=== PATIENT | male | born 1950 | race Caucasian/White ===

== ENCOUNTER 2018-05-12 22:39 | Emergency (ER) | payer MEDICARE, OTHER ==
[~2018-05-12] VITALS: Ht 182.9 cm; Wt 68.0 kg
[2018-05-12 22:43] VITALS: BP 132/82
--- NOTE | 2018-05-12 22:43 | NUR ---
PT TO ER BED 14. BIB EMS FROM [facility] FOR LOW BACK PAIN S/P FALL INTO WHEELCHAIR. -LOC/DENIES HEAD TRAUMA. PT PLACED IN GOWN ON STILL OPERATOR HELPER. PT VSS/NAD NOTED/RESP EVEN UNLABORED/SKIN WARM AND DRY/DENIES N-V-D/AFEBRILE/AOX4. AWAITING MD RAMÍREZ.
[2018-05-12] MEDS ORDERED: oxyCODONE/APAP (5/325 MG) 1 UDTAB TABLET PO ONE (23:30)
--- NOTE | 2018-05-12 23:30 | NUR ---
PT TO CT VIA STRETCHER. VSS.
[2018-05-12] MEDS ORDERED: oxyCODONE/APAP (5/325 MG) 1 UDTAB TABLET ONE (23:47)
--- NOTE | 2018-05-13 02:27 | NUR ---
REPORT GIVEN TO MAMIE BYRD FOR TRANSPORT.
--- NOTE | 2018-05-13 02:29 | NUR ---
Patient discharged to home in stable condition. Written and verbal after care instructions given. Patient verbalizes understanding of instruction.
[2018-05-27] MEDS ORDERED: DIVA-78 PO (18:22)
[2018-05-28] MEDS ORDERED: DIVA-78 PO (02:07)
== END 2018-05-13 02:43 | disposition home or self-care (01) ==
LOC: EDUNIT# 22:39 → ER 22:44
DX: S32.029A Unspecified fracture of second lumbar vertebra, initial encounter for closed fracture (principal); S22.069A Unspecified fracture of T7-T8 vertebra, initial encounter for closed fracture; W07.XXXA Fall from chair, initial encounter; Y93.89 Activity, other specified; Y92.89 Other specified places as the place of occurrence of the external cause; Y99.8 Other external cause status
CPT/HCPCS: 72128; 72131; 99284; A4606; Z7610

== ENCOUNTER 2018-05-27 15:26 | Inpatient (IN) | payer OTHER, MEDICARE ==
[~2018-05-27] VITALS: Ht 180.3 cm; Wt 74.8 kg
--- NOTE | 2018-05-27 15:30 | NUR ---
[facility] FOR LEFT HAND PAIN W/ SWELLING AND REDNESS WITH DRY WOUNDS. PATIENT IS A/OX 2, BREATHING EVEN AND UNLABORED. NO SOB, NAD, VITALS STABLE. SAFETY AND COMFORT MEAURES IN PLACE, AWAITING MD ORDERS.
[2018-05-27 15:57] LABS: BASOPHILS % (AUTO) 0.6 % (0.0-2.0); HEMATOCRIT 35 % (39-51); HEMOGLOBIN 11.7 g/dL (13.5-17.5); LYMPHOCYTES # (AUTO) 1.4 /CMM (0.8-4.8); LYMPHOCYTES % (AUTO) 17.6 % (20.0-44.0); MEAN CORPUSCULAR HEMOGLOBIN 30 PG (26.0-33.0); MEAN CORPUSCULAR HGB CONC 34 g/dl (31.0-36.0); MEAN CORPUSCULAR VOLUME 89 fL (80-96); MONOCYTES # (AUTO) 0.6 /CMM (0.1-1.30); MONOCYTES % (AUTO) 8.1 % (2.0-12.0); NEUTROPHILS # (AUTO) 5.6 /CMM (1.8-8.9); NEUTROPHILS % (AUTO) 71.7 % (43.0-81.0); PLATELET COUNT (AUTO) 184 /CMM (150-450); RDW COEFFICIENT OF VARIATION 14.9 (11.5-15.0); RED BLOOD CELL COUNT(AUTO) 3.92 MIL/uL (4.5-6.0); WHITE BLOOD COUNT (AUTO) 7.8 K/uL (4.3-11.0)
[2018-05-27 16:06] LABS: CALCIUM, SERUM 9.1 mg/dL (8.5-10.1); CREATININE 1.3 mg/dL (0.6-1.3)
[2018-05-27] MEDS ORDERED: CEFTRIAXONE 1GM BAG (ER ONLY) 50 ML IV ONE (16:43)
--- NOTE | 2018-05-27 16:55 | NUR ---
NEW IV STARTED ON RFA, 20G. MEDICATED PATIENT PER MD ORDERS
[2018-05-27] MEDS ORDERED: CEFTRIAXONE 1 G in IV D5W 50 ML IV ONE (17:00)
[2018-05-27] MEDS ORDERED: LEVE500T9 PO (18:22)
[2018-05-27] MEDS ORDERED: DOXA8TAB79 PO (18:22)
[2018-05-27] MEDS ORDERED: ASPI-1169 PO (18:22)
[2018-05-27] MEDS ORDERED: MONT10TA22 PO (18:22)
[2018-05-27] MEDS ORDERED: DIVA500T7 PO (18:22)
[2018-05-27] MEDS ORDERED: SENN-167 PO (18:22)
[2018-05-27] MEDS ORDERED: TAMS0.4C34 PO (18:22)
[2018-05-27] MEDS ORDERED: DOCU100C36 PO (18:22)
--- NOTE | 2018-05-27 18:39 | NUR ---
REPORT GIVEN TO RNMEAGAN. PATIENT TRANSPORTED TO [facility] VIA STRETCHER. MEAGAN TO PROVIDE CATRINA.
--- NOTE | 2018-05-27 19:05 | NUR ---
MS RN OPENING NOTE Patient was admitted to the unit just prior to shift change. Patient was seen in bed AAOx3, breathing on 2.5L O2 NC with no SOB and no signs of acute distress. SL IV is intact in the right forearm. Patient has multiple wounds and redness of his left arm/hand (admitted for cellulitis). Complete physical assessment and past medical history was obtained from the patient. Patient was oriented to the room and made comfortable. Bed is in the low/locked position, two side rails up, and call sanches within reach. All patient's needs have been met at this time. Will continue to monitor.
[2018-05-27 20:00] VITALS: BP 127/74
--- NOTE | 2018-05-27 21:45 | NUR ---
MS RN NOTE - call to Dr. Byers's Office Phone call was made to Dr. Byers's Office to obtain orders for new admission. Spoke with HARNESS INSTALLER Stephon Kat. Per Stephon Kat, continue all home medications, renew order for Rocephin that was given in ED, start on regular diet, order wound consult. Otherwise, wait for Dr. Byers to see patient tomorrow (05/28/18) morning.
[2018-05-27] MEDS ORDERED: ACETAMINOPHEN 325 MG TABLET PO PRN (22:00)
[2018-05-27] MEDS ORDERED: IPRATROPIUM/ALBUTEROL INHALER NEB PRN (22:00)
[2018-05-27] MEDS ORDERED: ACYCLOVIR 800 MG TABLET PO SCH (22:00)
[2018-05-27] MEDS: oxyCODONE/APAP (5/325 MG) 1 UDTAB TABLET PO PRN (22:18)
--- NOTE | 2018-05-27 22:18 | NUR ---
MS RN NOTE - Percocet Patient requested pain medication for 8/10 back pain (s/p fall and vertebral fracture 2-3 wks ago). PO Percocet 5/325mg was administered as ordered. Will continue to monitor.
[2018-05-28] MEDS ORDERED: DIVA500T7 PO (02:07)
[2018-05-28] MEDS ORDERED: TIOT18CA3 IH (02:50)
[2018-05-28] MEDS ORDERED: ALBU18HF2 INH (02:50)
[2018-05-28] MEDS ORDERED: FLUT1DIS3 INH (02:50)
[2018-05-28] MEDS ORDERED: THEO400T PO (02:50)
[2018-05-28] MEDS ORDERED: PRED5DRO16 RIGHTEYE (02:50)
[2018-05-28] MEDS: oxyCODONE/APAP (5/325 MG) 1 UDTAB TABLET PO PRN ×4 (05:58→23:59)
--- NOTE | 2018-05-28 05:58 | NUR ---
MS RN NOTE - Percocet Patient requested pain medication for back pain 07/05. PO Percocet 5/325mg administered as ordered. Will continue to monitor.
--- NOTE | 2018-05-28 06:00 | NUR ---
MS RN NOTE - O2 Patient asked if he could use an O2 mask instead of the nasal cannula. I educated him on the difference between the two, and also told him that a mask may not be necessary. The patient said that he tends to be a "mouth breather" and would feel more comfortable with a mask for now. Simple face mask was provided per patient request. O2 at 2 L.
--- NOTE | 2018-05-28 06:29 | NUR ---
MS RN NOTE - Call to assisted living facility Call was made to [facility] on behalf of patient. Patient stated that his [employer] (CM) Shayne Sam was scheduled to see him there today; this CM travels to see him, and the patient was concerned that he would miss the visit. Per city secretary at [facility], they will try to contact Shayne Sam and ask that he visit the patient at [facility].
--- NOTE | 2018-05-28 06:54 | NUR ---
MS RN NOTE - wound care I asked patient several times this shift if he was will to let me provide minor wound care (aka cleansing with normal saline, covering open wounds). Patient declined this shift.
--- NOTE | 2018-05-28 06:55 | NUR ---
MS RN CLOSING NOTE Patient was seen in bed AAOx3, breathing on 2.5L of O2 via simple mask with no SOB, and no signs of acute distress. Patient slept well overnight with no complaints or events. Patient remains in stable condition and has no immediate needs at this time. Bed is in the low/locked position, two side rails up, call sanches within reach. Patient care is endorsed to day shift RN.
[2018-05-28] MEDS ORDERED: ALBUTEROL FS 2.5 MG/0.5 ML VIAL.NEB NEB PRN ×2 (07:08)
--- NOTE | 2018-05-28 07:20 | NUR ---
RN OPENING NOTES RECEIVED PATIENT IN BED RESTING. A/OX4. NO ACUTE DISTRESS, NO SOB NOTED. IV SITE INTACT AND PATENT. KEPT PATIENT SAFE AND COMFORTABLE. BED IN LOW/LOCKED POSITION, SIDERAILS UPX2, CALL LIGHT IN REACH. WILL CONTINUE TO MONITOR ACCORDINGLY.
[2018-05-28] MEDS ORDERED: IPRATROPIUM NEB FS 0.5 MG/2.5 ML AMPUL.NEB NEB PRN (07:30)
[2018-05-28 08:00] VITALS: BP 118/74
--- NOTE | 2018-05-28 08:56 | NUR ---
WOUND CARE CONSULT: PT PRESENTS WITH MULTIPLE DRY SCABS AND DRY ABRASIONS PRESENT ON ADMISSION. DRY LESIONS TO UPPER BACK, SHOULDER AREA AND ABDOMEN NOTED, PRESENT ON ADMISSION. DEFER TO MD. PT INDEPENDENT WITH BED MOBILITY AND CONTINENT. WILL SEE PRN.
[2018-05-28 16:00] VITALS: BP 144/77
[2018-05-28] MEDS ORDERED: FLUTICASONE/SALMETEROL DISKUS IH SCH (17:00)
[2018-05-28] MEDS: LEVETIRACETAM (250 MG) 250 MG TABLET PO SCH (18:11)
--- NOTE | 2018-05-28 19:00 | NUR ---
FOLLOWED UP WITH PHARMACY REGARDING PREDISOLONE ACETATE EYEDROPS AND ANCEF ABX. PER BECKA, THEY WILL BRING IT UP. WILL ENDORSED MEDICATION ADMIN TO NIGHT RN.
--- NOTE | 2018-05-28 19:16 | NUR ---
RN CLOSING NOTES PATIENT IN STABLE CONDITION. ALL NEEDS ATTENDED AND PROVIDED. KEPT PATIENT SAFE AND COMFORTABLE. BED IN LOW/LOCKED POSITION, CALL LIGHT IN REACH. ENDORSED TO NIGHT RN FOR CATRINA.
--- NOTE | 2018-05-28 19:20 | NUR ---
MS RN OPENING NOTE Patient was seen lying in bed AAOx3, breathing on 2 L of O2 NC with no SOB, and no signs of acute distress. SL IV in right forearm remains intact. Urinal and bedside commode are within reach. Patient states that is having back pain and would like pain medication, otherwise, patient has no other concerns. Bed is in the low/locked position, two side rails up, and call sanches within reach. Will continue to monitor.
[2018-05-28] MEDS ORDERED: IPRATROPIUM NEB FS 0.5 MG/2.5 ML AMPUL.NEB NEB SCH (19:30)
--- NOTE | 2018-05-28 19:30 | NUR ---
MS RN NOTE - Pain Patient requested pain medication for 07/05 back pain s/p lumbar compression fracture. PO Percocet 5/325mg administered as ordered for pain relief. Will continue to monitor.
[2018-05-28] MEDS: prednisoLONE ACETATE 1% SUSP 5 ML BOTTLE RIGHTEYE SCH (19:35)
[2018-05-28] MEDS: CEFAZOLIN 1 GM in IV D5W 50 ML IV SCH (19:35)
[2018-05-28 20:00] VITALS: BP 120/61
[2018-05-28 21:08] VITALS: BP 120/61
[2018-05-28] MEDS: MONTELUKAST SODIUM (10MG) 10 MG TABLET PO SCH (21:30)
--- NOTE | 2018-05-29 | NUR ---
MS RN NOTE - Pain Patient requested pain medication for back pain 07/05. PO Percocet 5/325mg administered as ordered. Patient states that the use of Percocet has been successful thus far at relieving back pain to a tolerable level (about 03/05). Will continue to monitor.
[2018-05-29] MEDS: CEFAZOLIN 1 GM in IV D5W 50 ML IV SCH ×3 (05:37→21:24)
[2018-05-29] MEDS: oxyCODONE/APAP (5/325 MG) 1 UDTAB TABLET PO PRN ×3 (05:50→21:24)
--- NOTE | 2018-05-29 05:50 | NUR ---
MS RN NOTE - Pain, Percocet Patient reported 8/10 back pain due to lumbar fracture. PO Percocet 5/325mg was administered as ordered for pain relief. Will continue to monitor.
--- NOTE | 2018-05-29 06:49 | NUR ---
MS RN CLOSING NOTE Patient is lying in bed AAOx3, breathing on 3L of O2 NC with no SOB, and no signs of acute distress. Patient slept well overnight, with no complications, and only requesting pain medication as needed. Patient remains in stable condition and has no immediate needs or concerns at this time. Bed is in the low/locked position, two side rails up, call sanches within reach. Patient care endorsed to day shift nurse.
--- NOTE | 2018-05-29 07:28 | NUR ---
MS RN OPENING NOTES: RECEIVED PT AWAKE IN BED IN NO ACUTE SIGNS OF DISTRESS. HOB ELEVATED. A/O X4. ABLE TO MAKE NEEDS KNOWN, DENIES ANY PAIN OR DISCOMFORTS AT THIS TIME. URINAL AND BEDSIDE COMMODE ARE WITHIN EASY REACH OF PT. ON ROOM AIR, RESPIRATION EVEN AND UNLABORED. IV ACCESS ON RIGHT FA INTACT AND PATENT, FLUSHES WELL. SAFETY PRECAUTIONS MAINTAINED. BED IN LOW/LOCKED POSITION WITH SIDE-RAILS UP X2. CALL LIGHT IN REACH. WILL CONTINUE MONITOR PT ACCORDINGLY.
[2018-05-29 07:30] VITALS: BP 115/65
[2018-05-29] MEDS: FLUTICASONE/VILANTEROL 1 EACH BLST.W.DEV IH SCH (08:18)
[2018-05-29] MEDS: ASPIRIN 81 MG TAB.CHEW PO SCH (08:19)
[2018-05-29] MEDS: prednisoLONE ACETATE 1% SUSP 5 ML BOTTLE RIGHTEYE SCH ×2 (08:19→16:43)
[2018-05-29] MEDS: DIVALPROEX SODIUM 500 MG TABLET.DR PO SCH (08:19)
[2018-05-29] MEDS: TAMSULOSIN 0.4 MG CAP.SR.24H PO SCH (08:19)
[2018-05-29] MEDS: SENNOSIDES 8.6 MG TABLET PO SCH (08:20)
[2018-05-29] MEDS: LEVETIRACETAM (250 MG) 250 MG TABLET PO SCH ×2 (08:20→16:43)
--- NOTE | 2018-05-29 11:16 | NUR ---
RN NOTES PATIENT COMPLAINED OF ACHING PAIN ON HIS LOWER BACK WITH INTENSITY OF 8/10, REQUESTED PAIN MED, PRN PERCOCET 5/325MG TAB GIVEN ORDERED. WILL CONTINUE TO MONITOR
--- NOTE | 2018-05-29 15:06 | NUR ---
RN NOTES RECEIVED CALL FROM HERACLIO NORTON OF [facility] REPORTING THAT PT IS POSITIVE FOR MRSA OF [place]. CONTACT ISOLATION ENFORCED IMMEDIATELY. MD AND CHARGE NURSE MADE AWARE. WILL CONTINUE TO MONITOR.
--- NOTE | 2018-05-29 18:40 | NUR ---
MS RN CLOSING NOTES: PATIENT IN BED AWAKE AND RESTING AT MODERATE HIGH BACKREST POSITION. A/O X4, SAME VERBALLY RESPONSIVE. PT ON 02 VIA N/C AT 2LPM, TOLERATING WELL WITH NO SIGNS OF ACUTE RESPIRATORY DISTRESS NOTED. CONTACT PRECAUTIONS MAINTAINED. IV ACCESS ON RIGHT FA INTACT AND PATENT, FLUSHES WELL. SAFETY PRECAUTIONS MAINTAINED. BED IN LOW/LOCKED POSITION WITH SIDE-RAILS UP X2. CALL LIGHT AND BEDSIDE TABLE WITHIN REACH OF PT. URINAL AND BEDSIDE COMMODE PLACED WITHIN EASY REACH OF PT. ALL NEEDS AND CARE PROVIDED WELL. WILL ENDORSE TO LEAD JAVA DEVELOPER ARCHITECT NURSE FOR CATRINA.
[2018-05-29 20:00] VITALS: BP_SYST 139; BP_DIAS 75; BP_DIAS 78
--- NOTE | 2018-05-29 20:00 | NUR ---
MS SENIOR SAS PROGRAMMER INITIAL NOTES SEEN PT IN BED AFTER GOT REPORT FROM AM NURSE. PT RESTING AT THIS TIME WITH EYES CLOSED BUT AROUSE TO TOUCH. NOTICED WOUNDS AND SCABS ON HIS BODY, RESPIRATION EVEN AND NON-LABORED, NOT IN ANY ACUTE DISTRESS NOTED. KEPT HIM WARM AND COMFORTABLE AT ALL TIMES. HE'S ON ISOLATION PRECAUTION IMPLEMENTED AND OBSERVED. WILL CONTINUE MONITORING. PLACE CALL LIGHT AT REACH.
[2018-05-29] MEDS: MONTELUKAST SODIUM (10MG) 10 MG TABLET PO SCH (21:24)
--- NOTE | 2018-05-29 21:25 | NUR ---
MS AVERY NOTES C/O GENERALIZED PAIN, PERCOCET GIVEN ORDERED.
--- NOTE | 2018-05-30 | NUR ---
MS GASOLINE FINISHER NOTES PT SLEEPING AT THIS TIME WITHOUT ANY ACUTE DISTRESS NOTED. WILL CONTINUE MONITORING.
[2018-05-30] MEDS: oxyCODONE/APAP (5/325 MG) 1 UDTAB TABLET PO PRN ×2 (04:58→13:03)
--- NOTE | 2018-05-30 05:01 | NUR ---
MS INSIDE SALES ADVERTISING EXECUTIVE NOTES C/O PAIN ON HIS LOWER BACK , PERCOCET GIVEN ORDERED AND PT REQUESTED. PT REFUSED TO BE CLEAN UP AND STATED HE DOESN'T WANT TO BE CHANGE HE WANTS TO SLEEP MORE. JUST DO IT BY 8AM AFTER MY BREAKFAST HE STATED. CHARGE NURSE AWARE. KEPT HIM COMFORTABLE AT ALL TIMES. WILL CONTINUE TO MONITOR. PLACE CALL LIGHT AT REACH.
[2018-05-30] MEDS: CEFAZOLIN 1 GM in IV D5W 50 ML IV SCH ×2 (05:23→12:36)
--- NOTE | 2018-05-30 07:25 | NUR ---
MS RN NOTES PATIENT RECEIVED RESTING INSIDE ROOM, AWAKE, ALERT AND ORIENTED. VERBALLY RESPONSIVE AND RESPONDS TO VERBAL AND TACTILE STIMULI. PATIENT BREATHING EVEN AND UNLABORED. NO SOB OR ACUTE DISTRESS NOTED AT THIS TIME. PATIENT DENIES ANY PAIN OR DISCOMFORT. IV SITE INTACT AND PATENT. MAINTAINED ISOLATION PRECAUTION. WILL CONTINUE TO MONITOR. BED LOCKED AND IN LOW POSITION. BILATERAL UPPER SIDE RAILS UP AND LOCKED. CALL LIGHT WITHIN EASY REACH
--- NOTE | 2018-05-30 07:45 | NUR ---
MS ANIMAL FEEDER CLOSING NOTES PT AWAKE AND ALERT , RESPIRATION EVEN AND NON-LABORED. NO SIGNS OF ANY DISCOMFORT OR ANY ACUTE DISTRESS NOTED. ALL DUE MEDS GIVEN . STILL REFUSING TO DO HIS BEDDINSG AND SPONGE BATH. HE REQUESTED TO DO IT BY 8 AM AFTER HIS BREAKFAST ENDORSE.
[2018-05-30 08:00] VITALS: BP 119/64
[2018-05-30] MEDS: DIVALPROEX SODIUM 500 MG TABLET.DR PO SCH (08:38)
[2018-05-30] MEDS: TAMSULOSIN 0.4 MG CAP.SR.24H PO SCH (08:38)
[2018-05-30] MEDS: prednisoLONE ACETATE 1% SUSP 5 ML BOTTLE RIGHTEYE SCH (08:38)
[2018-05-30] MEDS: FLUTICASONE/VILANTEROL 1 EACH BLST.W.DEV IH SCH (08:38)
[2018-05-30] MEDS: SENNOSIDES 8.6 MG TABLET PO SCH (08:38)
[2018-05-30] MEDS: ASPIRIN 81 MG TAB.CHEW PO SCH (08:38)
[2018-05-30] MEDS: LEVETIRACETAM (250 MG) 250 MG TABLET PO SCH (08:38)
--- NOTE | 2018-05-30 13:46 | NUR ---
MS RN NOTES PATIENT SEEN AND EXAMINED BY DR. TOMPKINS. WITH ORDERS TO DISCHARGE PATIENT TO [facility]. PATIENT AT BEDSIDE, AWARE AND VERBALIZED UNDERSTANDING. ORDER NOTED AND CARRIED OUT. CASE MANAGEMENT AWARE. WITH ARRANGED TRANSPORTATION CLINICAL NURSE OCCUPATIONAL MEDICINE AT 1400. PLACED CALL TO [facility] ([phone]) AND SPOKE WITH ARIAS, REPORT GIVEN. WILL CONTINUE TO MONITOR
--- NOTE | 2018-05-30 14:44 | NUR ---
MS RN NOTES PATIENT FOR DISCHARGE TODAY. DISCHARGE TEACHING AND EDUCATION PROVIDED TO PATIENT AND VERBALIZED UNDERSTANDING. ALL BELONGINGS COMPLETE, NO REPORT OF MISSING BELONGINGS. IV REMOVED WITH MINIMAL BLEEDING NOTED, PRESSURE DRESSING PLACED. PATIENT LEFT VIA GURNEY AT 1400 IN STABLE CONDITION. BREATHING EVEN AND UNLABORED. NO SOB OR ACUTE DISTRESS NOTED. DENIES ANY PAIN OR DISCOMFORT. NO CHANGES IN LOC NOTED. PATIENT CALM AND RELAXED. NO EPISODE OF FALL OR INJURY DURING TRANSFER/DISCHARGE. MD MADE AWARE OF DISCHARGE.
[2018-05-30] MEDS ORDERED: CEPHALEXIN MONOHYDRATE 500 MG CAPSULE PO SCH (21:00)
[2018-05-30] MEDS ORDERED: ATORVASTATIN 10 MG TABLET PO SCH (22:00)
== END 2018-05-30 14:00 | DRG 383 ==
LOC: ER 15:29 → MED 18:29
PROVIDERS: ADMIT Internal Medicine; ATTEND Internal Medicine
DX: L03.114 Cellulitis of left upper limb (principal); J44.9 Chronic obstructive pulmonary disease, unspecified; M48.54XA Collapsed vertebra, not elsewhere classified, thoracic region, initial encounter for fracture; F03.90 Unspecified dementia, unspecified severity, without behavioral disturbance, psychotic disturbance, mood disturbance, and anxiety; G40.409 Other generalized epilepsy and epileptic syndromes, not intractable, without status epilepticus; Z86.73 Personal history of transient ischemic attack (TIA), and cerebral infarction without residual deficits; Z79.51 Long term (current) use of inhaled steroids; Z79.899 Other long term (current) drug therapy; Z79.82 Long term (current) use of aspirin; W19.XXXA Unspecified fall, initial encounter; N40.0 Benign prostatic hyperplasia without lower urinary tract symptoms; I25.10 Atherosclerotic heart disease of native coronary artery without angina pectoris; D63.8 Anemia in other chronic diseases classified elsewhere
CPT/HCPCS: 36415; 80048-TC; 85025-TC; 87040-TC; 87081-TC; A4606; A6402; J0690; J0696; J7040; J7060; Z7610